=== PATIENT | male | born 1965 | race Two or more races ===

== ENCOUNTER 2020-06-05 21:24 | Inpatient (IN) | payer OTHER ==
[2020-06-05 21:56] VITALS: BMI 22.1
[2020-06-05] MEDS ORDERED: LORazepam 1 MG TABLET PO PRN (22:22)
[2020-06-05] MEDS ORDERED: MAGNESIUM HYDROX 2400MG/30ML ORAL SUSPENSION 30 ML CUP PO PRN (22:22)
[2020-06-05] MEDS ORDERED: DICYCLOMINE HCL 10 MG CAPSULE PO PRN (22:22)
[2020-06-05] MEDS ORDERED: ONDANSETRON *ODT* 4 MG TABLET SL PRN (22:22)
[2020-06-05] MEDS ORDERED: BISMUTH SUBSALICYLATE 524 MG/30 ML UD PO PRN (22:22)
[2020-06-05] MEDS ORDERED: ACETAMINOPHEN 325 MG TABLET (FP) PO PRN ×2 (22:22)
[2020-06-05] MEDS ORDERED: MAG HYDROX/AL HYDROX/SIMETH 30 ML UNIT-DOSE CUP PO PRN (22:22)
[2020-06-05] MEDS ORDERED: MAGNESIUM CITRATE 300 ML BOTTLE PO PRN (22:22)
[2020-06-05] MEDS ORDERED: MENTHOL/PHENOL 1 EACH UD MM PRN (22:22)
[2020-06-05] MEDS ORDERED: guaiFENesin 200 MG/10 ML 10 ML UNIT-DOSE CUPS PO PRN (22:22)
[2020-06-05] MEDS ORDERED: METHOCARBAMOL 500 MG TABLET PO PRN (22:22)
[2020-06-05] MEDS ORDERED: P-EPHED 60MG/TRIPROLIDI 2.5MG TABLET PO PRN (22:22)
[2020-06-05] MEDS ORDERED: NICOTINE POLACRILEX 2 MG GUM BUC PRN (22:22)
[2020-06-05] MEDS ORDERED: IBUPROFEN 400 MG TABLET (FP) PO PRN (22:22)
[2020-06-05] MEDS ORDERED: cloNIDine HCL 0.1 MG TABLET PO ONE (22:24)
[2020-06-05] MEDS: LORazepam 2 MG TABLET PO SCH (23:47)
[2020-06-06] MEDS: LORazepam 2 MG TABLET PO SCH ×4 (05:37→22:10)
[2020-06-06] MEDS: hydrOXYzine PAMOATE 25 MG CAPSULE (FP) PO SCH ×2 (05:38→10:04)
[2020-06-06] MEDS: PRENATAL VITAMINS W/ FOLIC ACID TABLET (FP) PO SCH (10:04)
[2020-06-06] MEDS: NICOTINE 14 MG/24 HOURS TOPICAL PATCH TD SCH (10:05)
[2020-06-06] MEDS ORDERED: cloNIDine HCL 0.1 MG TABLET PO PRN (10:06)
[2020-06-06 10:08] LABS: HEMATOCRIT 35.5 % (35.4-49); HEMOGLOBIN 11.7 GM/dL (11.7-16.9); MCH 29.1 pg (25.7-33.7); MCHC 32.9 g/dl (32.0-35.9); MEAN CELL VOLUME 88.5 fl (80-96); MEAN PLT VOLUME 9.2 fl (7.5-11.1); PLATELET COUNT 190 K/MM3 (134-434); RBC 4.01 M/mm3 (4.00-5.60); RDW 14.9 % (11.9-15.9); WHITE BLOOD COUNT 7.5 K/mm3 (4.0-10.0)
[2020-06-06] MEDS ORDERED: hydrOXYzine PAMOATE 25 MG CAPSULE (FP) PO PRN (10:09)
[2020-06-06 10:11] LABS: POTASSIUM 3.8 mmol/L (3.5-5.1)
[2020-06-06 10:18] LABS: ALBUMIN 3.2 g/dl (3.4-5.0); BLOOD UREA NITROGEN 34.3 mg/dL (7-18); CALCIUM 8.8 mg/dL (8.5-10.1)
[2020-06-06 10:20] LABS: BILIRUBIN,TOTAL 0.2 mg/dL (0.2-1); TOT PROT 6.7 g/dl (6.4-8.2)
[2020-06-06 10:22] LABS: CREATININE 1.3 mg/dL (0.55-1.3)
[2020-06-06] MEDS: LISINOPRIL 10 MG TABLET PO SCH (10:27)
[2020-06-06 21:29] LABS: EPI CELLS 6 /uL (0-25.1); HYALINE CASTS 2 /uL (0-3.1); PH,URINE 5.5 (5.0-8.0); URINE APPEARANCE CLEAR; URINE BACTERIA 23 /uL (0-1359); URINE BILIRUBIN NEGATIVE (NEGATIVE); URINE COLOR YELLOW; URINE GLUCOSE (UA) NEGATIVE (NEGATIVE); URINE KETONE NEGATIVE (NEGATIVE); URINE LEUK ESTERASE NEGATIVE (NEGATIVE); URINE NITRITE NEGATIVE (NEGATIVE); URINE PROTEIN 1+ (NEGATIVE); URINE RBC 8 /uL (0-23.9); URINE UROBILINOGEN 0.2 mg/dL (0.2-1.0); URINE WBC 2 /uL (0-25.8)
[2020-06-06] MEDS: THIAMINE HCL 100 MG TABLET (FP) PO SCH (22:10)
[2020-06-06] MEDS: MELATONIN 5 MG TABLETS PO SCH (22:10)
[2020-06-07] MEDS: LORazepam 1 MG TABLET PO SCH ×4 (05:08→22:09)
[2020-06-07] MEDS: NICOTINE 14 MG/24 HOURS TOPICAL PATCH TD SCH (10:15)
[2020-06-07] MEDS: PANTOPRAZOLE 20 MG TABLET PO SCH (10:15)
[2020-06-07] MEDS: LISINOPRIL 10 MG TABLET PO SCH (10:15)
[2020-06-07] MEDS: PRENATAL VITAMINS W/ FOLIC ACID TABLET (FP) PO SCH (10:15)
[2020-06-07] MEDS: SERTRALINE HCL 50 MG TABLET (FP) PO SCH (13:23)
[2020-06-07] MEDS: THIAMINE HCL 100 MG TABLET (FP) PO SCH (22:09)
[2020-06-07] MEDS: MELATONIN 5 MG TABLETS PO SCH (22:09)
[2020-06-07] MEDS: ATORVASTATIN CA 20 MG TABLET (FP) PO SCH (22:09)
[2020-06-08] MEDS ORDERED: LORazepam 0.5 MG TABLET PO PRN
[2020-06-08] MEDS: LORazepam 0.5 MG TABLET PO SCH ×4 (06:03→22:30)
[2020-06-08 09:37] LABS: POTASSIUM 4.1 mmol/L (3.5-5.1)
[2020-06-08 09:44] LABS: BLOOD UREA NITROGEN 29.8 mg/dL (7-18); CALCIUM 9.5 mg/dL (8.5-10.1); CREATININE 1.2 mg/dL (0.55-1.3)
[2020-06-08] MEDS: NICOTINE 14 MG/24 HOURS TOPICAL PATCH TD SCH (10:19)
[2020-06-08] MEDS: PRENATAL VITAMINS W/ FOLIC ACID TABLET (FP) PO SCH (10:19)
[2020-06-08] MEDS: PANTOPRAZOLE 20 MG TABLET PO SCH (10:19)
[2020-06-08] MEDS: LISINOPRIL 10 MG TABLET PO SCH (10:20)
[2020-06-08] MEDS: SERTRALINE HCL 50 MG TABLET (FP) PO SCH (10:20)
[2020-06-08] MEDS: ATORVASTATIN CA 20 MG TABLET (FP) PO SCH (22:30)
[2020-06-08] MEDS: THIAMINE HCL 100 MG TABLET (FP) PO SCH (22:30)
[2020-06-08] MEDS: MELATONIN 5 MG TABLETS PO SCH (22:30)
[2020-06-09] MEDS ORDERED: LORazepam 0.5 MG TABLET PO ONE (05:00)
[2020-06-09 09:53] VITALS: BP 118/81; PULSE 117; TEMP 96.9
[2020-06-09] MEDS: PRENATAL VITAMINS W/ FOLIC ACID TABLET (FP) PO SCH (09:57)
[2020-06-09] MEDS: LISINOPRIL 10 MG TABLET PO SCH (09:57)
[2020-06-09] MEDS: PANTOPRAZOLE 20 MG TABLET PO SCH (09:57)
[2020-06-09] MEDS: NICOTINE 14 MG/24 HOURS TOPICAL PATCH TD SCH (09:57)
[2020-06-09] MEDS: SERTRALINE HCL 50 MG TABLET (FP) PO SCH (09:57)
== END 2020-06-09 10:33 | disposition home or self-care (01) | DRG 775 ==
LOC: YASAS 21:24 → Y3N 22:31
PROVIDERS: ADMIT Allergy & Immunology; ATTEND Allergy & Immunology
PROC: HZ2ZZZZ Detoxification Services for Substance Abuse Treatment (ICD-10-PCS; principal; 2020-06-05)
DX: F10.230 Alcohol dependence with withdrawal, uncomplicated (principal); F17.210 Nicotine dependence, cigarettes, uncomplicated; F19.24 Other psychoactive substance dependence with psychoactive substance-induced mood disorder; F32.9 Major depressive disorder, single episode, unspecified; I10 Essential (primary) hypertension; E78.00 Pure hypercholesterolemia, unspecified; K21.9 Gastro-esophageal reflux disease without esophagitis; D17.1 Benign lipomatous neoplasm of skin and subcutaneous tissue of trunk; R17 Unspecified jaundice; R73.9 Hyperglycemia, unspecified; Z91.5 Personal history of self-harm; Z56.0 Unemployment, unspecified; Z59.0 Homelessness
CPT/HCPCS: 36415; 80048; 80053; 81003; 85027; 86780; 93005; 93010; C9803; J0735; U0003